=== PATIENT | female | born 1980 | race American Indian/Alaskan Native ===

== ENCOUNTER 2016-10-06 18:31 | Emergency (ER) | payer SELFPAY ==
[2016-10-06 19:58] LABS: Eosinophils % (Auto) 4.5 % (0.0-4.3); Hematocrit 37.6 % (30.3-42.9); Hemoglobin 12.8 gm/dl (10.1-14.3); Mean Corpuscular HGB Conc 34 % (30-34); Mean Corpuscular Hemoglobin 32 pg (28-32); Mean Corpuscular Volume 94 fl (79-97); Platelet Count 327 K/mm3 (140-440); Red Blood Count 4.02 M/mm3 (3.65-5.03); Red Cell Distribution Width 13.8 % (13.2-15.2); White Blood Count 6.7 K/mm3 (4.5-11.0)
[2016-10-06 20:00] LABS: Albumin 3.7 g/dL (3.9-5); Albumin/Globulin Ratio 1.1 %; BUN/Creatinine Ratio 8.88; Bilirubin,Total 0.2 mg/dL (0.1-1.2); Calcium 9.2 mg/dL (8.4-10.2); Chloride 103.8 mmol/L (98-107); Potassium 3.9 mmol/L (3.6-5.0); Total Protein 7.2 g/dL (6.3-8.2)
[2016-10-06 23:23] LABS: Bacteria,Urine 1+ /HPF (Negative); Bilirubin,Urine NEG (Negative); Blood,Urine SM (Negative); Ketones,Urine NEG (Negative); Leukocyte Esterase,Urine LG (Negative); Mucus,Urine FEW /HPF; Nitrite,Urine POS (Negative); Urobilinogen,Urine < 2.0 mg/dL (<2.0)
--- NOTE | 2016-10-07 01:15 | Emergency Department Report ---
HPI - General Chief Complaint: Abdominal Pain Time Seen by Provider: 10/07/16 00:59 - HPI HPI: Room 23 The patient is a 36-year-old female presenting with a chief complaint of right flank pain. 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 Patient states 3 days ago she developed intermittent pain in the right back associated with nausea and vomiting and fever 102F. The patient states it also feels as though her stomach is "flipping." When asked how she is feeling now the patient complains of feeling "tired." Location: Right flank Duration: 3 days Quality: Pain Severity: Moderate Modifying factors: [see above] Context: [see above] Mode of transportation: The patient drove herself to the emergency department and there are no visitors present ED Past Medical Hx - Past Medical History Previous Medical History?: Yes Hx Hypertension: Yes Additional medical history: Chronic kidney disease. Bowel incontinenece. One kidney- left kidney - Surgical History Past Surgical History?: Yes Additional Surgical History: Hysterectomy, Some type of reconstructive surgery when born-unsure of what type of reconstruction. Ureteral stent - Family History Family history: no significant - Social History Smoking Status: Current Every Day Smoker - Medications Home Medications: Home Medications Medication Instructions Recorded Confirmed Last Taken Type Nitrofurantoin [place]/M-Cryst 100 mg PO Q12HR #20 capsule 10/07/16 Unknown Rx [Macrobid CAP] traMADol [Ultram] 50 mg PO Q6HR PRN #14 tablet 10/07/16 Unknown Rx ED Review of Systems ROS: Stated complaint: LOWER BACK/ABD PAIN/VOMITING Other details as noted in HPI Comment: All other systems reviewed and negative Constitutional: fever, malaise Eyes: denies: eye pain, eye discharge, vision change ENT: denies: ear pain, throat pain Respiratory: denies: cough, shortness of breath, wheezing Cardiovascular: denies: chest pain, palpitations Endocrine: no symptoms reported Gastrointestinal: nausea, vomiting. denies: abdominal pain Genitourinary: denies: urgency, dysuria, discharge Musculoskeletal: back pain. denies: joint swelling, arthralgia Skin: denies: rash, lesions Neurological: denies: headache, weakness, paresthesias Psychiatric: denies: anxiety, depression Hematological/Lymphatic: denies: easy bleeding, easy bruising Physical Exam - Physical Exam Vital Signs: Vital Signs 10/06/16 18:44 Temperature 98.5 F Pulse Rate 83 Respiratory 18 Rate Blood Pressure 119/73 O2 Sat by Pulse 100 Oximetry Physical Exam: GENERAL: The patient is well-developed well-nourished female lying on stretcher asleep but awakens to tactile stimuli. Patient alert and oriented after awakening HEENT: Normocephalic. Atraumatic. Extraocular motions are intact. Patient has moist mucous membranes. NECK: Supple. Trachea midline CHEST/LUNGS: Clear to auscultation. There is no respiratory distress noted. HEART/CARDIOVASCULAR: Regular. There is no tachycardia. There is no gallop rub or murmur. ABDOMEN: Abdomen is soft, with mild discomfort to palpation in the right lower quadrant. Patient has normal bowel sounds. There is no abdominal distention. SKIN: There is no rash. There is no edema. There is no diaphoresis. NEURO: The patient is awake, alert, and oriented. The patient is cooperative. The patient has normal speech MUSCULOSKELETAL: There is right CVA tenderness. There is no evidence of acute injury. ED Course Vital Signs 10/06/16 18:44 Temperature 98.5 F Pulse Rate 83 Respiratory 18 Rate Blood Pressure 119/73 O2 Sat by Pulse 100 Oximetry ED Medical Decision Making - Lab Data Result diagrams: 10/06/16 19:23 10/06/16 19:23 Laboratory Tests 10/06/16 10/06/16 10/06/16 19:23 19:23 22:17 WBC 6.7 RBC 4.02 Hgb 12.8 Hct 37.6 MCV 94 MCH 32 MCHC 34 RDW 13.8 Plt Count 327 Lymph % (Auto) 29.2 [place] % (Auto) 7.4 H Eos % (Auto) 4.5 H Baso % (Auto) 1.0 Lymph # 2.0 [place] # 0.5 Eos # 0.3 Baso # 0.1 Seg Neutrophils % 57.9 Seg Neutrophils # 3.9 Sodium 142 Potassium 3.9 Chloride 103.8 Carbon Dioxide 22 Anion Gap 20 BUN 16 Creatinine 1.8 H Estimated GFR 39 BUN/Creatinine Ratio 8.88 Glucose 82 Calcium 9.2 Total Bilirubin 0.2 AST 13 ALT 11 Alkaline Phosphatase 93 Total Protein 7.2 Albumin 3.7 L Albumin/Globulin Ratio 1.1 Lipase 32 Urine Color Yellow Urine Turbidity Cloudy Urine pH 6.0 Ur Specific [place] 1.011 Urine Protein 30 mg/dl Urine Glucose (UA) Neg Urine Ketones Neg Urine Blood Sm Urine Nitrite Pos Urine Bilirubin Neg Urine Urobilinogen < 2.0 Ur Leukocyte Esterase Lg Urine WBC (Auto) 110.0 H Urine RBC (Auto) 2.0 U Epithel Cells (Auto) 7.0 Urine Bacteria (Auto) 1+ Urine Mucus Few - Radiology Data Radiology results: report reviewed (CT abdomen and pelvis), image reviewed (CT abdomen and pelvis) CT abdomen and pelvis (read by radiologist)- large right adnexal cystic structure likely ovarian in origin measuring 8 x 7 cm. This appears mildly complex by CT. This may cause mild mass effect upon the distal right ureter mild right sided hydroureteronephrosis. Moderate amount of fluid in the pelvis. Possible small left ovarian cystic structure measuring 3 cm. Uterus appears to be surgically absent - Medical Decision Making I discussed the patient CT findings and creatinine with her. I expressed the importance of prompt follow-up with a boiling house oiler, urologist and crystal lapper given the findings and her only having one kidney. Vision verbalized understanding of the importance of prompt follow-up. Patient instructed should she not improve or notice any other symptoms she should return to the emergency department immediately. - Differential Diagnosis pyelonephritis, renal colic Critical care attestation.: If time is entered above; I have spent that time in minutes in the direct care of this critically ill patient, excluding procedure time. ED Disposition Clinical Impression: Acute pyelonephritis, Acute right flank pain, Renal insufficiency, Adnexal mass Disposition: DISCHARGED TO HOME OR SELFCARE Is pt being admited?: No Does the pt Need Aspirin: No Condition: Stable Instructions: Abdominal Pain (ED) Additional Instructions: Return to the emergency department immediately should you develop worsening symptoms, fever, inability to tolerate food or liquid or any other concerns. Prescriptions: Nitrofurantoin [place]/M-Cryst [Macrobid CAP] 100 mg PO Q12HR #20 capsule traMADol [Ultram] 50 mg PO Q6HR PRN #14 tablet PRN Reason: Pain Referrals: [facility] [Outside] - 3-5 Days ROCIO ADKINS MD [Staff Physician] - [facility] (Dr Adkins is a urologist. Please follow up with him for further evaluation) SLADE CROUCH MD [Staff Physician] - [facility] (Dr. Crouch is a crystal lapper (kidney doctor). Please follow up with him for further evaluation of your kidneys) BRITTANY SPENCER MD [Staff Physician] - [facility] (Dr. Spencer is a primary physician. Please follow up with her to be established as a patient) JOSE LUIS HAYES MD [Staff Physician] - [facility] (Dr. Hayes is a boiling house oiler. Please follow up with her for further evaluation of the right adnexal mass) Time of Disposition: 03:39
--- NOTE | 2016-10-07 03:08 | Cat Scan Report ---
FINAL REPORT EXAM: CT ABDOMEN PELVIS WO CON HISTORY: right flank pain. COMPARISON: None available. TECHNIQUE: Contiguous axial images were obtained. Additional sagittal and coronal reformatted images were obtained. FINDINGS: Lung bases are clear. Gallbladder is not visualized and may be extremely contracted. Liver, spleen, pancreas are grossly unremarkable. Adrenal glands are not well visualized. No large adrenal mass. Left kidney is not visualized. There appears to be a single right kidney. Mild dilatation right renal pelvis and ureter. No calculus identified along the course the right ureter or urinary bladder. Urinary bladder is partially decompressed. Moderate amount of fluid in the pelvis. There is a right adnexal cystic structure which appears to be at least mildly complex measuring approximately 7 x 8 centimeters in axial dimension. Uterus appears to be surgically absent. Question left ovarian cystic structure measuring 3.0 x 2.5 centimeters (series 3, image 19). No bowel obstruction. Moderate to large amount of stool in the colon. No bowel obstruction. The appendix is not visualized. Lumbar vertebral body heights and disc heights are preserved. Bony pelvis is grossly intact.. IMPRESSION: Large right adnexal cystic structure likely ovarian in origin measuring 8 x 7 centimeters. This appears mildly complex by CT. This may cause mild mass effect upon the distal right ureter with mild right-sided hydroureteronephrosis. Moderate amount of fluid in the pelvis. Possible small left ovarian cystic structure measuring 3 centimeters. Uterus appears to be surgically absent. Solitary right kidney. Left kidney is not visualized. Moderate large amount of stool within the colon. No bowel obstruction. The appendix is not visualized. No andrei inflammatory changes the bowel.
[2016-10-07 05:41] VITALS: BP 112/68
== END 2016-10-07 04:00 | disposition home or self-care (01) ==
LOC: ED 18:31
DX: N10 Acute pyelonephritis (principal); N28.9 Disorder of kidney and ureter, unspecified; R19.09 Other intra-abdominal and pelvic swelling, mass and lump; I12.0 Hypertensive chronic kidney disease with stage 5 chronic kidney disease or end stage renal disease; N18.9 Chronic kidney disease, unspecified; Z90.710 Acquired absence of both cervix and uterus; F17.200 Nicotine dependence, unspecified, uncomplicated; Z88.8 Allergy status to other drugs, medicaments and biological substances
CPT/HCPCS: 36415; 74176; 80053; 81001; 83690; 85025